=== PATIENT | female | born 1995 | race Caucasian/White ===

== ENCOUNTER → 2018-07-11 | Emergency (ER) | payer OTHER ==
[~2018-07-11] VITALS: Ht 157.5 cm; Wt 59.0 kg
[~2018-07-11] MED LIST: LEVSIN/SL0.125 MG PO; PRENATAL CAPLE1 EACH PO; PRENATAL VITAMI1 TAB PO; PROTONIX40 MG PO
== END | disposition home or self-care (01) ==
LOC: ER 20:17
DX: O20.8 Other hemorrhage in early pregnancy (principal); Z34.81 Encounter for supervision of other normal pregnancy, first trimester

== ENCOUNTER → 2018-09-07 | Emergency (ER) | payer OTHER ==
[~2018-09-07] VITALS: Ht 157.5 cm; Wt 59.0 kg
[~2018-09-07] MED LIST changes: +KEFLEX500 MG PO
== END | disposition home or self-care (01) ==
LOC: ER 19:47
DX: J06.9 Acute upper respiratory infection, unspecified (principal); J32.8 Other chronic sinusitis

== ENCOUNTER 2019-02-20 10:48 | Inpatient (IN) | payer OTHER ==
[~2019-02-20] VITALS: Ht 157.5 cm; Wt 150.0 kg
== END 2019-02-22 13:55 | disposition home or self-care (01) | DRG 807 ==
LOC: OB/GYN 10:48 → LDR 10:48 → OB/GYN 13:33
PROVIDERS: ADMIT Obstetrics & Gynecology
PROC: 10E0XZZ Delivery of Products of Conception, External Approach (ICD-10-PCS; principal; 2019-02-20)
PROC: 10907ZC Drainage of Amniotic Fluid, Therapeutic from Products of Conception, Via Natural or Artificial Opening (ICD-10-PCS; 2019-02-20)
PROC: 4A1HXCZ Monitoring of Products of Conception, Cardiac Rate, External Approach (ICD-10-PCS; 2019-02-20)
DX: O80 Encounter for full-term uncomplicated delivery (principal); Z37.0 Single live birth; Z3A.38 38 weeks gestation of pregnancy; Z22.330 Carrier of Group B streptococcus

== ENCOUNTER → 2019-10-30 | Emergency (ER) | payer OTHER ==
[~2019-10-30] VITALS: Ht 152.4 cm; Wt 55.8 kg
[~2019-10-30] MED LIST changes: +FLUCONAZOLE150 MG PO; +MONISTAT 315 GM VAG
== END | disposition home or self-care (01) ==
LOC: ER 22:59
DX: B37.3 Candidiasis of vulva and vagina (principal)

== ENCOUNTER 2020-08-15 20:24 | Emergency (ER) | payer OTHER ==
[~2020-08-15] VITALS: Ht 157.5 cm; Wt 51.3 kg
== END 2020-08-15 22:48 | disposition home or self-care (01) ==
LOC: ER 20:24
DX: B34.9 Viral infection, unspecified (principal); B96.0 Mycoplasma pneumoniae [M. pneumoniae] as the cause of diseases classified elsewhere; Z20.828 Contact with and (suspected) exposure to other viral communicable diseases

== ENCOUNTER 2022-06-15 20:46 | Emergency (ER) | payer OTHER ==
[~2022-06-15] VITALS: Ht 157.5 cm; Wt 65.8 kg
== END 2022-06-16 00:15 | disposition home or self-care (01) ==
LOC: ER 20:46
DX: U07.1 COVID-19 (principal); A49.3 Mycoplasma infection, unspecified site